=== PATIENT | male | born 1940 | race Caucasian/White ===

== ENCOUNTER 2022-09-05 08:34 | Emergency (ER) | payer MEDICARE ==
[~2022-09-05] VITALS: Ht 190.5 cm; Wt 77.1 kg
--- NOTE | 2022-09-05 08:35 | NUR ---
Placed in room 06 . Placed on market research worker, blood pressure machine and pulse oximeter. To gown for exam. Side rails up. Report given to Romelia AYALA .
[2022-09-05 08:37] VITALS: BP_SYST 125
--- NOTE | 2022-09-05 08:44 | NUR ---
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 PT IS AWAKE, A/O X4 AND VERBALLY RESPONSIVE. NO ACUTE DISTRESS NOTED. BREATHING EVEN AND UNLABORED. PT DENIES ANY CHEST PAIN, NAUSEA, OR NUMBNESS TO JAW / ARMS. PT SPEAKS CEAR AND FULL SENTENCES. TREMORS PRESENT, PT HAS HISTORY OF [place]. 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 SAFETY MEASURES IN PLACE. GURNEY IN LOWEST POSITION.
[2022-09-05] MEDS ORDERED: FAMO20TA8 PO (08:58)
[2022-09-05] MEDS ORDERED: LIP10 PO (08:58)
[2022-09-05] MEDS ORDERED: ASPI-1155 PO (08:58)
[2022-09-05] MEDS ORDERED: MIDO2.5T PO (08:58)
[2022-09-05] MEDS ORDERED: ALEN10TA25 PO (08:58)
[2022-09-05] MEDS ORDERED: HYT1 PO (08:58)
[2022-09-05] MEDS ORDERED: CARB1TAB33 PO (08:58)
[2022-09-05 09:33] LABS: BASOPHILS % (AUTO) 0.7 % (0.0-2.0); EOSINOPHILS # (AUTO) 0.1 K/uL (0.0-0.4); EOSINOPHILS % (AUTO) 1.8 % (0.0-4.0); HEMATOCRIT 39.1 % (36-54); HEMOGLOBIN 13.2 g/dL (14.0-18.0); LYMPHOCYTES # (AUTO) 0.8 K/uL (1.0-5.5); LYMPHOCYTES % (AUTO) 13.5 % (20.5-51.5); MEAN CORPUSCULAR HEMOGLOBIN 32 pg (27-31); MEAN CORPUSCULAR HGB CONC 34 % (32-36); MEAN CORPUSCULAR VOLUME 95 fL (79.0-98.0); MONOCYTES # (AUTO) 0.4 K/uL (0.0-1.0); MONOCYTES % (AUTO) 6.7 % (1.7-9.3); NEUTROPHILS # (AUTO) 4.8 K/uL (1.8-7.7); NEUTROPHILS % (AUTO) 77.3 % (40.0-70.0); PLATELET COUNT (AUTO) 125 K/uL (130-430); RED BLOOD CELL COUNT(AUTO) 4.11 MIL/uL (4.2-6.2); RED CELL DISTRIBUTION WIDTH 13.2 % (9.0-15.0); WHITE BLOOD COUNT (AUTO) 6.2 K/uL (4.8-10.8)
[2022-09-05 09:45] LABS: PROTHROMBIN TIME 10.7 SECS (9.5-12.5)
[2022-09-05 09:46] LABS: ANION GAP 4 (5-15); CALCIUM 8.7 mg/dL (8.4-11.0); CHLORIDE 102 mmol/L (98-107); CREATININE 0.99 mg/dL (0.55-1.30); GLUCOSE 110 mg/dL (70-99); UREA NITROGEN, BLOOD 20 mg/dL (8-21)
[2022-09-05 09:53] LABS: ALANINE AMINOTRANSFERASE 9 U/L (12-78); ALBUMIN 3.6 g/dL (3.4-4.8); ASPARTATE AMINOTRANSFERASE 17 U/L (10-37); TOTAL BILIRUBIN 0.7 mg/dL (0.0-1.0)
--- NOTE | 2022-09-05 10:13 | NUR ---
DAUGHTER AT BEDSIDE, PER DAUGHTER STATED HER MOTHER CALLED 911 THIS AM DUE TO PT BEING PALE IN COLOR, CLINCHING FISTS AND COMPLAINING OF CHEST PAIN. PER DAUGHTER, STATES PT LOOKS "BACK TO NORMAL" AND COLOR APPORPRIATE FOR ETHNICITY. PT IS AWAKE AND A/O X4 AND VERBALLY RESPONSIVE. DENIES ANY PAIN OR DISCOMFORT. BREATHING EVEN AND UNLABORED. SAFETY MEASURES IN PLACE.
--- NOTE | 2022-09-05 11:05 | NUR ---
PT AWAKE IN GURNEY, AT BEDSIDE. NO ACUTE DISTRESS NOTED. BREATHING EVEN AND UNLABOTED. 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 SAFETY MEASURES IN PLACE
--- NOTE | 2022-09-05 11:57 | NUR ---
DR. VILLAVICENCIO, [facility], CALLED BACK FOR PEER TO PEER.
--- NOTE | 2022-09-05 12:17 | NUR ---
[facility] called, accepting pt. transport ER to ER ([facility]: Ayan Ballard) Accepting physcisiraquel Taylor. Report phone #
[2022-09-05 13:12] VITALS: BP_SYST 119
--- NOTE | 2022-09-05 13:27 | NUR ---
report called to prosper choi at [facility].
--- NOTE | 2022-09-05 13:38 | NUR ---
pt's daughter and stating they would prefer pt to be discharged home instead of being transferred to [facility] and they would follow up with his pcp. md haro made aware and speaking to pt and family at bedside
--- NOTE | 2022-09-05 13:58 | NUR ---
discharge instructions reviewed with pt and family by md haro. pt and family verbalized understanding and denied any questions. family at bedside dressing pt at this time.
== END 2022-09-05 13:58 | disposition home or self-care (01) ==
LOC: SED 08:34
DX: R07.9 Chest pain, unspecified (principal); F41.9 Anxiety disorder, unspecified; E78.5 Hyperlipidemia, unspecified; J44.9 Chronic obstructive pulmonary disease, unspecified; Z79.899 Other long term (current) drug therapy
CPT/HCPCS: 36415; 71045; 80053; 83880; 84484; 85025; 85379; 85610-TC; 85730-TC; 93005; 99285

== ENCOUNTER 2023-11-26 20:43 | Emergency (ER) | payer MEDICARE ==
[~2023-11-26] VITALS: Ht 180.3 cm; Wt 65.8 kg
[~2023-11-26 20:43] MED LIST: ALEN10TA25 PO; ASPI-1155 PO; ATOR-449 PO; CARB1TAB33 PO; FAMO20TA8 PO; HYT1 PO; MIDO2.5T PO
[2023-11-26 20:52] VITALS: BP_SYST 127; PULSE 86; RESP 18; TEMP 99.8; O2SAT 98
[2023-11-26 21:16] LABS: BASOPHILS % (AUTO) 0.1 % (0.0-2.0); EOSINOPHILS % (AUTO) 0.1 % (0.0-4.0); HEMATOCRIT 38.1 % (36-54); HEMOGLOBIN 13.4 g/dL (14.0-18.0); LYMPHOCYTES # (AUTO) 0.6 K/uL (1.0-5.5); LYMPHOCYTES % (AUTO) 4.7 % (20.5-51.5); MEAN CORPUSCULAR HEMOGLOBIN 33 pg (27-31); MEAN CORPUSCULAR HGB CONC 35 % (32-36); MEAN CORPUSCULAR VOLUME 93 fL (79.0-98.0); MONOCYTES # (AUTO) 0.4 K/uL (0.0-1.0); MONOCYTES % (AUTO) 3.5 % (1.7-9.3); NEUTROPHILS # (AUTO) 11.1 K/uL (1.8-7.7); NEUTROPHILS % (AUTO) 91.6 % (40.0-70.0); PLATELET COUNT (AUTO) 119 K/uL (130-430); RED BLOOD CELL COUNT(AUTO) 4.11 MIL/uL (4.2-6.2); RED CELL DISTRIBUTION WIDTH 13.5 % (9.0-15.0); WHITE BLOOD COUNT (AUTO) 12.1 K/uL (4.8-10.8)
[2023-11-26 21:31] LABS: ANION GAP 9 (5-15); CALCIUM 8.9 mg/dL (8.4-11.0); CARBON DIOXIDE 27 mmol/L (23-29); CHLORIDE 97 mmol/L (98-107); GLUCOSE 122 mg/dL (74-106); POTASSIUM 3.9 mmol/L (3.5-5.1); SODIUM SERUM 133 mmol/L (136-145); UREA NITROGEN, BLOOD 17 mg/dL (8-21)
[2023-11-26 21:36] LABS: ALCOHOL, BLOOD < 3 mg/dL (<10)
[2023-11-26 22:12] LABS: BILIRUBIN,URINE NEGATIVE (NEGATIVE); BLOOD, URINE 1+ (NEGATIVE); COLOR,URINE YELLOW (YELLOW); GLUCOSE,URINE NEGATIVE (NEGATIVE); KETONES,URINE NEGATIVE (NEGATIVE); LEUKOCYTE ESTERASE ,URINE 2+ (NEGATIVE); NITRITE, URINE NEGATIVE (NEGATIVE); PROTEIN URINE TRACE (NEGATIVE); UROBILINOGEN,URINE 0.2 (0.2-1.0)
[2023-11-26] MEDS: NACL 0.9% 1,000 ML IV ONE (22:23)
[2023-11-26 22:26] LABS: CLARITY/URINE HAZY (CLEAR)
[2023-11-26 22:27] LABS: BACTERIA,URINE FEW /HPF (None Seen); RBC,URINE 0-3 /HPF (0-3)
[2023-11-26 22:28] LABS: BARBITURATE, URINE NEGATIVE (NEG <=200); BENZODIAZEPINE, URINE NEGATIVE (NEG <=150); CANNABINOID, URINE NEGATIVE (NEG <=50); COCAINE, URINE NEGATIVE (NEG <=150); METHAMPHETAMINES SCREEN,URINE NEGATIVE (NEG <=500); MUCUS,URINE None Seen /LPF (None Seen); OPIATE, URINE NEGATIVE (NEG <=100); PHENCYCLIDINE SCREEN,URINE NEGATIVE (NEG <=25); UR TRICYCLIC ANTIDEPRESSANTS NEGATIVE (NEG <=300); URINE AMPHETAMINE NEGATIVE (NEG <=500); URINE METHADONE NEGATIVE (NEG <=200); URINE OXYCODONE SCREEN NEGATIVE (NEG <=100)
[2023-11-26] MEDS ORDERED: TAMS-11 PO (23:29)
[2023-11-26] MEDS ORDERED: MIDO2.5T PO (23:29)
[2023-11-26] MEDS ORDERED: NITSL SL (23:29)
[2023-11-26] MEDS ORDERED: POLYTRIM LEFT EYE (23:29)
[2023-11-26] MEDS ORDERED: FAMO40TA7 PO (23:29)
[2023-11-26] MEDS ORDERED: cefTRIAXone 1 GM VIAL IM ONE (23:30)
[2023-11-27] MEDS ORDERED: LIDOCAINE 1%, 20 ML MDV 0 ML ONE (00:01)
[2023-11-27] MEDS: cefTRIAXone 1 GM in D5W 50 ML IV ONE (00:14)
[2023-11-27 02:00] VITALS: BP_SYST 128; PULSE 78; RESP 18; TEMP 98; O2SAT 94
== END 2023-11-27 02:00 | disposition short-term general hospital (02) ==
LOC: SED 20:43
DX: R41.82 Altered mental status, unspecified (principal); R53.1 Weakness; R51.9 Headache, unspecified; G20.A1 Parkinson's disease without dyskinesia, without mention of fluctuations; J44.9 Chronic obstructive pulmonary disease, unspecified; N18.30 Chronic kidney disease, stage 3 unspecified; E78.5 Hyperlipidemia, unspecified; Z79.899 Other long term (current) drug therapy; Z79.2 Long term (current) use of antibiotics; Z79.82 Long term (current) use of aspirin
CPT/HCPCS: 99285; 96365; 71045; 70450; 96361; 80307; 80048; 81001; 85025; 87040; 87086; 84484; 36415; 93005; 83605; G0482; J0696; J7030; 81000; 81015; 87186; J2001